=== PATIENT | male | born 1935 | race Caucasian/White ===

== ENCOUNTER → 2021-01-29 10:23 | Outpatient (BNVA) | payer MEDICARE, SELFPAY | PROVIDERS: Family Provider Family Medicine; PCP Internal Medicine; Visit Provider Nurse Practitioner | DX: R41.3 Other amnesia (principal) | CPT/HCPCS: 99204 ==

== ENCOUNTER 2021-03-21 15:02 | Outpatient (CLI) | payer MEDICARE, SELFPAY ==
--- NOTE | 2021-03-21 15:28 | CTR_ITS ---
PROCEDURE INFORMATION: Exam: CT Head Without Contrast Exam date and time: 03/21/2021 3:28 PM Age: 85 years old Clinical indication: Condition or disease; Other: Anesthesia of skin; Altered mental status/memory loss; Prior surgery; Surgery type: RT ear and eye; Additional info: R20.0 - anesthesia of skin TECHNIQUE: Imaging protocol: Computed tomography of the head without contrast. Total images: 123 Radiation optimization: All CT scans at this facility use at least one of these dose optimization techniques: automated exposure control; mA and/or kV adjustment per patient size (includes targeted exams where dose is matched to clinical indication); or iterative reconstruction. COMPARISON: No relevant prior studies available. RADIATION DOSE METRICS: Total DLP (mGy-cm): 992.04 FINDINGS: Brain: No evidence of acute intracranial pathologic process, hemorrhage, or trauma. No hyperdense MCA or insular ribbon sign. No mass effect. No midline shift. Old posterior left parietal and left occipital focal infarctions with associated atrophy, encephalomalacia, gliosis, and early porencephaly. Old bilateral basal ganglia lacunar infarctions. Cerebral arteriosclerosis. Cerebral and cerebellar atrophy with ventricular dilatation greater than that anticipated for patient's chronological age. Cerebral ventricles: No ventriculomegaly. Paranasal sinuses: Visualized sinuses are unremarkable. No fluid levels. Mastoid air cells: Evidence of previous right mastoidectomy. Orbital cavity: Right orbital globe hyperdense aqueous humor. Left orbital structures intact. Bones/joints: Unremarkable. No acute fracture. Soft tissues: Unremarkable. CT/CT head wo con* [id number] IMPRESSION: No evidence of acute intracranial pathologic process, hemorrhage, or trauma. Radiation Dose CTDIVOL = (mGy): DLP = 992.04 (mGy-cm)
== END 2021-03-21 15:03 | disposition home or self-care (01) ==
LOC: RADWPI 15:06
PROVIDERS: PCP Internal Medicine; Visit Provider Nurse Practitioner
DX: R20.0 Anesthesia of skin (principal); R41.82 Altered mental status, unspecified
CPT/HCPCS: 70450

== ENCOUNTER 2022-10-28 18:24 | Emergency (ER) | payer MEDICARE, SELFPAY ==
[2022-10-28 18:05] VITALS: BP 157/91; PULSE 83; RESP 29; TEMP 37.3; O2SAT 92
--- NOTE | 2022-10-28 18:07 | W.ED.WEAKNES ---
HPI - Weakness General: Chief complaint: Weakness Stated complaint: WEAKNESS Limitations: altered mental status History of Present Illness: Mr. Villanueva is an 87-year-old gentleman with history of dementia, diabetes, thyroid disorder, hypertension, hyperlipidemia presenting to the emergency department for presyncopal type event. The patient himself is alone in the room and provides limited history, unclear baseline however there is reported dementia. Per EMS report he had generalized weakness that started today and he had an episode where his eyes rolled back and it was hard to orient him. Review of Systems General: Reports: ROS unobtainable due to mental status PFSH ED PFSH: Medical History (Updated 11/05/22 @ 00:00 by AUSTYN Marie) Anxiety Cataract Depression Diabetes Enlarged prostate Hyperlipidemia Hypertension Hypothyroidism Surgical History (Updated 10/28/22 @ 18:41 by Collins Gan MD) History of hernia repair Family History Father Diabetes Brother Diabetes Social History Smoking and tobacco status: never smoked Physical Exam Const: COMMON NORMALS: alert GENERAL APPEARANCE: cooperative and well developed HENMT: COMMON NORMALS: normocephalic and atraumatic HEAD & SCALP: normocephalic and atraumatic THROAT: posterior oropharynx normal Eye: COMMON NORMALS: conjunctivae normal CONJUNCTIVA: Yes conjunctivae normal SCLERA: sclerae normal Neck/C-Spine: COMMON NORMALS: supple GENERAL: Yes trachea midline Resp: COMMON NORMALS: clear to auscultation bilaterally EFFORT & INSPECTION: Yes able to speak in complete sentences AUSCULTATION: clear to auscultation bilaterally Cardio: COMMON NORMALS: regular rate and regular rhythm RATE: regular rate RHYTHM: regular rhythm GI: COMMON NORMALS: Soft to palpation PALPATION: Yes Soft to palpation and No Tenderness to palpation present (GI) Extremity: GENERAL: Yes normal exam except as noted and No edema Neuro: COMMON NORMALS: CN's II-XII intact bilaterally, moves all extremities, no focal motor deficits and no sensory deficits noted SENSORIUM/ORIENTATION: Yes alert and Yes Orientation impaired Psych: COMMON NORMALS: mental status grossly normal MEMORY/COGNITION: Yes memory grossly impaired Course Vital Signs: Vital signs: Vital Signs Temperature 99.1 F 10/28/22 18:05 Pulse Rate 83 03/01/23 23:04 Respiratory Rate 16 10/28/22 21:16 Blood Pressure 152/86 10/28/22 23:04 Pulse Oximetry 92 10/28/22 23:04 Oxygen Delivery Me thod 10/28/22 18:05 MDM - Weakness Medical Decision Making 87-year-old gentleman presenting with mental status change. He does have underlying dementia and exam is nonfocal. Twelve-lead EKG shows sinus rhythm with first-degree AV block and right bundle branch block. No STEMI. Labs with likely hemoconcentration and mild dehydration with elevated creatinine. Negative range 2-hour delta troponin. Chest x-ray with no lobar consolidation or pneumothorax. Knee x-ray negative for fracture. CT head negative for acute pathology. Patient treated with analgesia and IV fluids and feels improved. Most likely etiology of symptoms is dehydration with previous ED. I discussed disposition options. Patient and family are comfortable with management at home and strict return precautions. The results of ED evaluation were discussed with the patient including prescriptions and/or symptomatic cares (if applicable) including appropriate and responsible use, followup plan, and return precautions. The patient verbalized understanding and felt safe for discharge. Medical Records I reviewed the patient's medical records. Lab Data I reviewed the patient's lab results. 10/28/22 18:40 10/28/22 18:40 Radiology Impressions Chest X-Ray 10/28/22 18:16 IMPRESSION: Decreased lung volumes otherwise negative chest. Head CT 10/28/22 18:16 IMPRESSION: 1. No acute intracranial abnormalities. 2. Additional chronic findings as above. Knee X-Ray 10/28/22 20:12 IMPRESSION: Moderate degenerative changes medial knee compartment. No acute abnormalities. Laboratory Results WBC 11.9 10^3/uL (4.0-10.0) H 10/28/22 18:40 RBC 6.04 10^6/uL (4.1-5.3) H 10/28/22 18:40 Hgb 18.6 g/dL (11.7-16.6) H 10/28/22 18:40 Hct 55.3 % (42.0-52.0) H 10/28/22 18:40 MCV 91.6 fl (80-94) 10/28/22 18:40 MCH 30.8 pg (28.0-34.0) 10/28/22 18:40 MCHC 33.6 g/dL (30.0-36.0) 10/28/22 18:40 RDW 13.1 % (12.1-15.1) 10/28/22 18:40 Plt Count 217 10^3/cmm (130-400) 10/28/22 18:40 MPV 9.8 fL (7.4-10.4) 10/28/22 18:40 Neut % (Auto) 80.1 % 10/28/22 18:40 Lymph % (Auto) 10.8 % 10/28/22 18:40 [place] % (Auto) 7.3 % 10/28/22 18:40 Eos % (Auto) 0.1 % 10/28/22 18:40 Baso % (Auto) 0.9 % 10/28/22 18:40 Neut # (Auto) 9.57 10^3/uL (1.8-7.7) H 10/28/22 18:40 Lymph # (Auto) 1.3 10^3/uL (0.8-4.8) 10/28/22 18:40 [place] # (Auto) 0.9 10^3/uL (0.2-0.9) 10/28/22 18:40 Eos # (Auto) 0.0 10^3/uL (0.0-0.8) 10/28/22 18:40 Baso # (Auto) 0.1 10^3/uL (0.0-0.1) 10/28/22 18:40 Nucleated RBC % (auto) 0 % 10/28/22 18:40 Nucleated RBCs # 0.0 /100WBC 10/28/22 18:40 Sodium 135 mmol/L (136-145) L 10/28/22 18:40 Potassium 5.1 mmol/L (3.5-5.1) 10/28/22 18:40 Chloride 93 mmol/L (98-107) L 10/28/22 18:40 Carbon Dioxide 22 mmol/L (22-29) 10/28/22 18:40 Anion Gap 25.1 (5-19) H 10/28/22 18:40 BUN 22 mg/dL (8-23) 10/28/22 18:40 Creatinine 1.4 mg/dL (0.7-1.2) H 10/28/22 18:40 GFR Calculation Not Reportable 10/28/22 18:40 Glucose 257 mg/dL (65-115) H 10/28/22 18:40 Calculated Osmolality 292 mOsm/kg (285-295) 10/28/22 18:40 Calcium 10.0 mg/dL (8.5-10.5) 10/28/22 18:40 Total Bilirubin 0.7 mg/dL (0.15-1.2) 10/28/22 18:40 AST 16 U/L (0-40) 10/28/22 18:40 ALT 11 U/L (0-41) 10/28/22 18:40 Alkaline Phosphatase 89 U/L (40-130) 10/28/22 18:40 Troponin T Baseline 37 ng/L (0-15) H 10/28/22 18:40 Troponin T 120 Minute 34.60 ng/L (0-15) H 10/28/22 20:52 Delta Troponin T -2.40 ABS# (0-10) L 10/28/22 20:52 C-Reactive Protein 25.0 mg/L (0.0-4.9) H 10/28/22 18:40 Total Protein 7.7 g/dL (6.6-8.7) 10/28/22 18:40 Albumin 4.8 g/dL (3.5-5.2) 10/28/22 18:40 Globulin 2.9 g/dL (1.3-4.6) 10/28/22 18:40 Procalcitonin 0.13 ng/mL (0-0.5) 10/28/22 18:40 TSH 3.61 uIU/mL (0.27-4.20) 10/28/22 18:40 Urine Color Yellow (Yellow) 10/28/22 19:41 Urine Appearance Clear (CLEAR) 10/28/22 19:41 Urine pH 5 (5-7) 10/28/22 19:41 Ur Specific [place] 1.015 (1.005-1.030) 10/28/22 19:41 Urine Protein Neg (Negative) 10/28/22 19:41 Urine Glucose (UA) 4+ (Normal) H 10/28/22 19:41 Urine Ketones 1+ (Negative) H 10/28/22 19:41 Urine Blood Neg (Negative) 10/28/22 19:41 Urine Nitrate Negative (Negative) 10/28/22 19:41 Urine Bilirubin Neg (Negative) 10/28/22 19:41 Urine Urobilinogen Norm mg/dL (Negative) 10/28/22 19:41 Ur Leukocyte Esterase Negative (Negative) 10/28/22 19:41 Discharge Plan Discharge Patient Disposition: Home Clinical Impression: Pre-syncope, Dehydration, Elevated serum creatinine, Orthostatic hypotension Condition: Stable Prescriptions: No Action levothyroxine [Euthyrox] 50 mcg tablet 50 mcg PO DAILY sertraline 100 mg tablet 100 mg PO DAILY metoprolol tartrate 25 mg tablet 25 mg PO DAILY tamsulosin 0.4 mg capsule 0.4 mg PO DAILY lisinopril 10 mg tablet 10 mg PO DAILY Trulicity 1.5 mg/0.5 mL pen injector SUBCUT .once a week buspirone 15 mg tablet 15 mg PO BID metformin 500 mg tablet 500 mg PO BID hydroxyzine HCl 25 mg tablet 25 mg PO TID PRN simvastatin 40 mg tablet 40 mg PO DAILY donepezil 5 mg tablet 5 mg PO DAILY loratadine [Claritin] 10 mg tablet 10 mg PO DAILY Discharge Orders: Discharge ED (Routine); Ordered 10/28/22 Ordered By: Collins Gan Referrals: Nancy Ayala, [Referring] - Discharge Diet: Usual diet Discharge Activity: Increase activity as tolerated Patient Instructions: Dehydration (ED), Near Syncope (ED) Activity Restrictions/Additional Instructions: Thank you for visiting the emergency department. You were seen and evaluated for episode of near syncope. The exact cause of your symptoms is unclear though likely related to dehydration. Please ensure that you are staying hydrated. Please follow-up with your primary care provider. Return to the emergency department for uncontrolled symptoms or anything else that you are concerned about and feel needs emergency department evaluation. Coding Level of Care Code ED Design Director for Jack Cullen
--- NOTE | 2022-10-28 18:16 | XRR_ITS ---
PROCEDURE INFORMATION: Exam: XR Chest Exam date and time: 10/28/2022 6:51 PM Age: 87 years old Clinical indication: Shortness of breath; Additional info: Near syncope, SOB, weakness TECHNIQUE: Imaging protocol: Radiologic exam of the chest. Views: 1 view. COMPARISON: No relevant prior studies available. FINDINGS: Lungs: Lung volumes are somewhat decreased which may be due to body habitus. No infiltrates. Pleural spaces: Unremarkable. No pleural effusion. No pneumothorax. Heart/Mediastinum: Unremarkable. No cardiomegaly. Bones/joints: Unremarkable. XR/XR chest 1V portable [id number] IMPRESSION: Decreased lung volumes otherwise negative chest.
--- NOTE | 2022-10-28 18:16 | CTR_ITS ---
PROCEDURE INFORMATION: Exam: CT Head Without Contrast Exam date and time: 10/28/2022 8:27 PM Age: 87 years old Clinical indication: Altered mental status/memory loss and dizziness and syncope and collapse; Prior surgery; Surgery date: 6+ months; Surgery type: RT eye; Additional info: Near syncope TECHNIQUE: Imaging protocol: Computed tomography of the head without contrast. Radiation optimization: All CT scans at this facility use at least one of these dose optimization techniques: automated exposure control; mA and/or kV adjustment per patient size (includes targeted exams where dose is matched to clinical indication); or iterative reconstruction. REPORTING DATA: Count of CT and Cardiac NM exams in prior 12 months: This patient has received 0 known CTs and 0 known cardiac nuclear medicine studies in the 12 months prior to the current study. COMPARISON: CT head wo con* [id number] 03/21/2021 3:58 PM RADIATION DOSE METRICS: Total DLP (mGy-cm): 1235.8 FINDINGS: Brain: Evidence of old infarcts with associated encephalomalacia left occipital lobe and left posterior parietal lobe and unchanged. Old lacunar infarcts left basal ganglia and right thalamus. Diffuse chronic white matter microvascular changes throughout the periventricular white matter, stable. 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 No evidence of acute infarct at this time. No evidence of intracranial hemorrhage. Age-related cerebral volume loss with associated prominence of cortical sulci, stable. Cerebral ventricles: Mild ventricular dilatation, unchanged likely secondary to age-related cerebral volume loss. Paranasal sinuses: Visualized sinuses are unremarkable. No fluid levels. Mastoid air cells: Prior right mastoidectomy. Partial opacification left mastoid sinus mildly progressed from previous exam. Orbital cavities: There is an ocular implant right globe, unchanged. Bones/joints: Unremarkable. No acute fracture. Soft tissues: Unremarkable. CT/CT head wo con* [id number] IMPRESSION: 1. No acute intracranial abnormalities. 2. Additional chronic findings as above.
--- NOTE | 2022-10-28 18:25 | ECG_ITS ---
[facility] Test Date: 2022-10-28 Pat Name: Darrian Villanueva Department: Room: Gender: Male Tobacco Grader: : 1935 Requested By: Collins Gan Order Number: [id number] Juan Diego MD: Abdias Pires M.D. Measurements Intervals [place] Rate: 85 P: 41 OK: 246 QRS: -79 QRSD: 134 T: 73 QT: 376 QTc: 449 Interpretive Statements SINUS RHYTHM WITH FIRST DEGREE AV BLOCK WITH FREQUENT SUPRAVENTRICULAR PREMATURE COMPLEXES RIGHT BUNDLE BRANCH BLOCK [120+ ms QRS DURATION, UPRIGHT V1, 40+ ms S IN I/aVL/V4/V5/V6] LEFT ANTERIOR FASCICULAR BLOCK [QRS AXIS <= -45, QR IN I, RS IN II] LEFT VENTRICULAR HYPERTROPHY AND ST-T CHANGE [VOLTAGE CRITERIA PLUS ST/T ABNORMALITY] POSSIBLE ANTERIOR MYOCARDIAL INFARCTION , OF INDETERMINATE AGE [30 ms Q WAVE IN V3/V4, OR R < 0.2 mV IN V4] No previous ECG available for comparison Electronically Signed On 10-29-2022 18:06:47 BUDGET CONSULTANT by Abdias Pires M.D. [id number]
[2022-10-28 18:49] LABS: Basophils # 0.1 10^3/uL (0.0-0.1); Basophils % 0.9 %; Eosinophils % 0.1 %; Hematocrit 55.3 % (42.0-52.0); Hemoglobin 18.6 g/dL (11.7-16.6); Lymphocytes # 1.3 10^3/uL (0.8-4.8); Lymphocytes % 10.8 %; Mean Corpuscular HGB Conc 33.6 g/dL (30.0-36.0); Mean Corpuscular Hemoglobin 30.8 pg (28.0-34.0); Mean Corpuscular Volume 91.6 fl (80-94); Mean Platelet Volume 9.8 fL (7.4-10.4); Monocytes # 0.9 10^3/uL (0.2-0.9); Monocytes % 7.3 %; Neutrophils # 9.57 10^3/uL (1.8-7.7); Neutrophils % 80.1 %; Nucleated Red Blood Cells % 0 %; Platelet Count 217 10^3/cmm (130-400); Red Blood Count 6.04 10^6/uL (4.1-5.3); Red Cell Distribution Width 13.1 % (12.1-15.1); White Blood Count 11.9 10^3/uL (4.0-10.0)
[2022-10-28 18:57] VITALS: BP 148/63; BP 168/72; BP 88/60
[2022-10-28 19:12] LABS: Troponin(5th) Baseline 37 ng/L (0-15)
[2022-10-28 19:20] LABS: Procalcitonin 0.13 ng/mL (0-0.5); Thyroid Stimulating Hormone 3.61 uIU/mL (0.27-4.20)
[2022-10-28 19:39] LABS: Alanine Aminotransferase 11 U/L (0-41); Albumin Level 4.8 g/dL (3.5-5.2); Alkaline Phosphatase 89 U/L (40-130); Anion Gap 25.1 (5-19); Aspartate Amino Transferase 16 U/L (0-40); Blood Urea Nitrogen 22 mg/dL (8-23); Carbon Dioxide 22 mmol/L (22-29); Chloride 93 mmol/L (98-107); Globulin 2.9 g/dL (1.3-4.6); Glucose 257 mg/dL (65-115); Osmolality Calculated 292 mOsm/kg (285-295); Potassium 5.1 mmol/L (3.5-5.1); Sodium 135 mmol/L (136-145); Total Bilirubin 0.7 mg/dL (0.15-1.2); Total Protein 7.7 g/dL (6.6-8.7)
[2022-10-28 19:46] VITALS: BP 164/64; PULSE 74; RESP 24; O2SAT 93
[2022-10-28] MEDS: sodium chloride 0.9% 1,000 ML 999 ML IV (19:50)
[2022-10-28 19:58] LABS: Charge for UA Resulting for Rev
[2022-10-28 20:05] LABS: Bilirubin Urine Neg (Negative); Blood Urine Neg (Negative); Glucose Urine UA 4+ (Normal); Ketones Urine 1+ (Negative); Leukocyte Esterase Urine Negative (Negative); Nitrate Urine Negative (Negative); Protein Urine Neg (Negative); Specific Gravity, Urine 1.015 (1.005-1.030); Urine Appearance Clear (CLEAR); Urine Color Yellow (Yellow); Urobilinogen Urine Norm (Negative); pH Urine 5 (5-7)
[2022-10-28 20:06] LABS: Add Urine Microscopic? NO
--- NOTE | 2022-10-28 20:12 | XRR_ITS ---
PROCEDURE INFORMATION: Exam: XR Left Knee Exam date and time: 10/28/2022 8:36 PM Age: 87 years old Clinical indication: Pain; Knee; Left; Additional info: Pain, twisted TECHNIQUE: Imaging protocol: Radiologic exam of the left knee. Views: 3 views. COMPARISON: No relevant prior studies available. FINDINGS: Bones/joints: There are moderate degenerative changes involving the medial knee compartment with some joint space narrowing, subchondral sclerosis and marginal spurring. Remainder of the joint surfaces are preserved. No fracture or malalignment. Soft tissue: No significant joint effusion. Diffuse vascular calcifications within the soft tissues. XR/XR knee LT 3V* [id number] IMPRESSION: Moderate degenerative changes medial knee compartment. No acute abnormalities.
[2022-10-28] MEDS: ketorolac 30 mg/mL INJ 15 MG IVP (21:03)
[2022-10-28 21:16] VITALS: BP 174/72; PULSE 77; RESP 16; O2SAT 93
--- NOTE | 2022-10-28 21:36 | ECG_ITS ---
[facility] Test Date: 2022-10-28 Pat Name: Darrian Villanueva Department: Room: Gender: Male Director Of Religious Life: : 1935 Requested By: Collins Gan Order Number: [id number] Juan Diego MD: Abdias Pires M.D. Measurements Intervals [place] Rate: 73 P: 36 [place]: 249 QRS: -81 QRSD: 146 T: 56 QT: 408 QTc: 451 Interpretive Statements SINUS RHYTHM WITH FIRST DEGREE AV BLOCK WITH FREQUENT SUPRAVENTRICULAR PREMATURE COMPLEXES IN A BIGEMINAL PATTERN RIGHT BUNDLE BRANCH BLOCK [120+ ms QRS DURATION, UPRIGHT V1, 40+ ms S IN I/aVL/V4/V5/V6] LEFT ANTERIOR FASCICULAR BLOCK [QRS AXIS <= -45, QR IN I, RS IN II] POSSIBLE ANTEROSEPTAL MYOCARDIAL INFARCTION , OF INDETERMINATE AGE [30 ms Q WAVE IN V1-V4] Compared to ECG 10/28/2022 18:25:31 Left ventricular hypertrophy no longer present ST (T wave) deviation no longer present Myocardial infarct finding still present Electronically Signed On 10-29-2022 18:13:12 GEAR HOBBER by Abdias Pires M.D. [id number]
[2022-10-28 22:00] VITALS: BP 149/61; PULSE 74; O2SAT 91
[2022-10-28 23:04] VITALS: BP 152/86; PULSE 83; O2SAT 92
== END 2022-10-28 23:06 | disposition home or self-care (01) ==
PROVIDERS: Emergency Provider Emergency Medicine; PCP Family Medicine
DX: I95.1 Orthostatic hypotension (principal); R74.8 Abnormal levels of other serum enzymes; Z79.85 Long-term (current) use of injectable non-insulin antidiabetic drugs; Z79.84 Long term (current) use of oral hypoglycemic drugs; E11.9 Type 2 diabetes mellitus without complications; E78.5 Hyperlipidemia, unspecified; I10 Essential (primary) hypertension
CPT/HCPCS: 36415; 70450; 71045; 73562; 80053; 81003; 84145; 84443; 84484; 85025; 86140; 93005; 96361; 96374; 99285; J1885; J7030

== ENCOUNTER → 2024-04-18 10:44 | Outpatient (BNVA) | payer MEDICARE, SELFPAY | PROVIDERS: PCP Family Medicine; Referring Provider Family Medicine; Visit Provider Psychiatry & Neurology Neurology | DX: E11.9 Type 2 diabetes mellitus without complications (principal); F03.90 Unspecified dementia, unspecified severity, without behavioral disturbance, psychotic disturbance, mood disturbance, and anxiety; T67.01XA Heatstroke and sunstroke, initial encounter; R26.89 Other abnormalities of gait and mobility; G45.9 Transient cerebral ischemic attack, unspecified; I49.9 Cardiac arrhythmia, unspecified; I10 Essential (primary) hypertension; R41.3 Other amnesia; R29.818 Other symptoms and signs involving the nervous system; X58.XXXA Exposure to other specified factors, initial encounter | CPT/HCPCS: 99203; 99204 ==

== ENCOUNTER → 2024-04-26 13:30 | Outpatient (BNVA) | payer MEDICARE, SELFPAY | PROVIDERS: PCP Family Medicine; Visit Provider Internal Medicine | DX: R07.9 Chest pain, unspecified (principal); R55 Syncope and collapse; I45.2 Bifascicular block; I51.7 Cardiomegaly; R94.31 Abnormal electrocardiogram [ECG] [EKG]; I49.9 Cardiac arrhythmia, unspecified; E11.9 Type 2 diabetes mellitus without complications; I10 Essential (primary) hypertension; E78.5 Hyperlipidemia, unspecified | CPT/HCPCS: 93005; 99204 ==

== ENCOUNTER 2024-05-22 12:21 | Outpatient (CLI) | payer MEDICARE, SELFPAY ==
--- NOTE | 2024-05-22 12:30 | USCV_ITS ---
Darrian Villanueva Age: 89 Gender: M : 1935 Exam Date: 05/22/2024 12:35 Ordering Phys: Stefano Cruz MD Technologist: Exam [place] [facility] [place]: syncope cva BP: 125 / 76 HR: 78 Rhythm: Sinus Technical Quality: Adequate MEASUREMENTS (Male / Female) Normal Values 2D ECHO LV Diastolic Diameter PLAX 4.5 cm 4.2 - 5.9 / 3.9 - 5.3 cm IVS Diastolic Thickness 0.8 cm 0.6 - 1.0 / 0.6 - 0.9 cm IVS Systolic Thickness 1.3 cm LVPW Diastolic Thickness 1.2 cm 0.6 - 1.0 / 0.6 - 0.9 cm LVPW Systolic Thickness 2.0 cm LVOT Diameter 2.0 cm LV Ejection Fraction 2D Teich 54.9 % LV Ejection Fraction MOD 4C 74.8 % LV Ejection Fraction MOD 2C 70.1 % LV Ejection Fraction 2C AL 71.6 % LA Diameter 3.2 cm RA Systolic Volume 4C AL 42.3 ml RA Systolic Volume 4C MOD 40.5 ml LA Sys Volume AL 43.4 cm cubed LA Sys Volume Index AL 23.8 cm cubed/m squared Aorta at Sinotubular Diameter 3.0 cm M-MODE LA Ao Ratio MM 1.3 AV Cusp Separation MM 2.0 cm DOPPLER AV Peak Velocity 210.0 cm/s LVOT Peak Velocity 98.0 cm/s AV Area Cont Eq vti 1.8 cm squared AV Area Cont Eq pk 1.5 cm squared MV Area PHT 3.3 cm squared Mitral E to A Ratio 1.3 TV Peak Velocity 254.5 cm/s TR Peak Velocity 385.0 cm/s TR Peak Gradient 59.3 mmHg TV Peak E Velocity 159.0 cm/s Right Atrial Pressure 3.0 mmHg Pulmonary Artery Systolic Pressu 62.3 mmHg PV Peak Velocity 111.0 cm/s FINDINGS Left Ventricle Left ventricle is normal size. LV systolic function is normal with EF 55 to 60%. No regional wall motion abnormalities are seen Right Ventricle Normal in size and function Right Atrium Normal in size Left Atrium Normal in size Mitral Valve Mitral valve is thickened. Mild to moderate mitral regurgitation. Aortic Valve Aortic valve is thickened and calcified. Mild aortic regurgitation. No significant stenosis seen. Tricuspid Valve Mild tricuspid regurgitation. Insufficient TR jet to calculate RVSP Pulmonic Valve Not well visualized Pericardium Normal Aorta Normal in size IVC Not well visualized CONCLUSIONS LV systolic function is normal with EF of 55 to 60%. Mild to moderate mitral regurgitation. Mild aortic regurgitation Mild tricuspid regurgitation. Abdias Pires MD (Electronically Signed) Final Date: 28 May 2024 20:23 S
--- NOTE | 2024-05-22 13:15 | USCV_ITS ---
Darrian Villanueva Age: 89 Gender: M : 1935 Exam Date: 05/22/2024 12:58 Ordering Phys: Stefano Cruz MD Technologist: Exam Location: [facility] [place] Indication: cva sycope Risk Factors: Previous Vascular Surgery: Right Brachial BP: / Left Brachial BP: / Right Left Velocity (cm/s) Spectral Plaque Velocity (cm/s) Spectral Plaque Syst/Diast Broadening Syst/Diast Broadening 105.70/0.00 Prox CCA 64.30 / 9.90 91.10/ 8.90 Mid CCA 84.40 / 0.00 87.40/ 12.60 Hetro Distal CCA 97.30 / 8.50 Hetro 120.00/17.30 Hetro Prox ICA 100.10/ 14.10 Hetro 118.00/14.20 Mid ICA 118.50/ 18.20 106.40/16.30 Distal ICA 132.50/ 18.20 244.40 ECA 102.10 1.40 ICA/CCA 1.40 Antegrade Vertebral Antegrade 37.30/ 0.00 cm/s 48.20/ 0.00 cm/s Bi Subclavian Bi 104.5 176.9 0 0 FINDINGS Comparison: none available. No significant elevation of systolic or diastolic velocities. Scattered plaque in the bifurcations. Antegrade vertebral arteries. Poor visualization of the artery lumen due tosuboptimal technique. CONCLUSIONS Bilateral ICA stenosis less than 50%. Mild carotid atherosclerosis. Dr. Ivana Chaney DO (Electronically Signed) Final Date: 22 May 2024 15:44 S
== END 2024-05-22 12:22 | disposition home or self-care (01) ==
LOC: RAD 12:21
PROVIDERS: PCP Family Medicine; Visit Provider Psychiatry & Neurology Neurology
DX: I34.0 Nonrheumatic mitral (valve) insufficiency (principal); I34.81 Nonrheumatic mitral (valve) annulus calcification; I35.2 Nonrheumatic aortic (valve) stenosis with insufficiency; I10 Essential (primary) hypertension; R26.89 Other abnormalities of gait and mobility; G45.9 Transient cerebral ischemic attack, unspecified
CPT/HCPCS: 93306; 93880

== ENCOUNTER 2024-05-25 08:26 | Outpatient (CLI) | payer MEDICARE, SELFPAY ==
--- NOTE | 2024-05-25 08:45 | MR_ITS ---
WS: [id number] MRI BRAIN WITHOUT CONTRAST HISTORY: E11.9 - Type 2 diabetes mellitus without complications COMPARISON: None available. TECHNIQUE: Diffusion imaging, multiplanar T1, T2 and FLAIR imaging obtained. Normal diffusion. No acute infarct. Severe bilateral symmetric atrophy. Advanced small vessel disease. Confluent and patchy T2 and FLAIR signal hyperintensity surrounding the ventricles. 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 Severe bilateral hippocampal atrophy. Moderate ventriculomegaly. Extra-axial spaces are prominent also due to the atrophy. No inferior displacement of cerebellar tonsils. The sella turcica and pituitary gland are unremarkabl e. Dural venous sinuses and [place] of [place] demonstrate no abnormality on this unenhanced studies. Paranasal sinuses: Clear. Mastoid air cells: LEFT mastoid air cell effusion. Calvarium and scalp: Intact. MR/MR head wo con* [id number] IMPRESSION: 1. No acute diffusion abnormality. 2. Remote infarcts RIGHT cerebellum and posterior LEFT parietal lobe. 3. Severe atrophy and small vessel disease. 4. Severe hippocampal atrophy.
== END 2024-05-25 08:27 | disposition home or self-care (01) ==
LOC: RAD 08:26
PROVIDERS: PCP Family Medicine; Visit Provider Psychiatry & Neurology Neurology
DX: I63.541 Cerebral infarction due to unspecified occlusion or stenosis of right cerebellar artery (principal); F03.90 Unspecified dementia, unspecified severity, without behavioral disturbance, psychotic disturbance, mood disturbance, and anxiety; E11.9 Type 2 diabetes mellitus without complications; G31.9 Degenerative disease of nervous system, unspecified; G31.09 Other frontotemporal neurocognitive disorder
CPT/HCPCS: 70551

== ENCOUNTER 2024-05-29 14:59 | Observation (INO) | payer MEDICARE, SELFPAY ==
[2024-05-29] VITALS (7 sets, daily range): BP systolic 135–206; BP diastolic 51–111; PULSE 61–93; RESP 16–20; TEMP 36.6–36.7; O2SAT 93–98
--- NOTE | 2024-05-29 15:31 | XR_ITS ---
WS: [id number] Exam: XR chest 1V portable [id number] Date/Time of Exam: 05/29/2024 3:31 PM Reason For Exam: weakness Comparison 10/28/2022. Lungs are fully expanded and clear. Normal cardiomediastinal silhouette. No pleural effusions. 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 XR/XR chest 1V portable [id number] IMPRESSION: 1. No acute cardiopulmonary finding.
--- NOTE | 2024-05-29 15:42 | CTR_ITS ---
PROCEDURE INFORMATION: Exam: CT Head Without Contrast Exam date and time: 05/29/2024 4:16 PM Age: 89 years old Clinical indication: Altered mental status/memory loss; Additional info: AMS TECHNIQUE: Imaging protocol: Computed tomography of the head without contrast. Radiation optimization: All CT scans at this facility use at least one of these dose optimization techniques: automated exposure control; mA and/or kV adjustment per patient size (includes targeted exams where dose is matched to clinical indication); or iterative reconstruction. COMPARISON: MR head wo con* [id number] 05/25/2024 8:47 AM RADIATION DOSE METRICS: Total DLP (mGy-cm): 1164 FINDINGS: Brain: No intracranial hemorrhage. There is global parenchymal volume loss. Periventricular white matter hypoattenuation is nonspecific but most likely due to small vessel disease. No evidence of acute territorial infarct or cerebral edema. No mass effect or midline shift. Left parietal and occipital encephalomalacia. Remote right thalamic lacunar infarct. Moderate bilateral periventricular and subcortical white matter hypodensities are present compatible with small-vessel ischemic disease. Cerebral ventricles: Prominent ventricles likely secondary to volume loss. Paranasal sinuses: Visualized sinuses are unremarkable. No fluid levels. Mastoid air cells: Previous right mastoidectomy. Left mastoid fluid. Orbital cavities: Right globe prosthesis. Bones: Unremarkable. No acute fracture. Soft tissues: Unremarkable. CT/CT head wo con* [id number] IMPRESSION: No acute intracranial findings.
--- NOTE | 2024-05-29 15:46 | W.ED.RECABL ---
HPI - Recheck/Abnormal Lab/Rx General: Chief Complaint: Recheck/Abnormal Lab/Rx Stated Complaint: abn labs(sent by raúl) Time Seen by Provider: 05/29/24 15:32 Source: family Limitations: altered mental status History of Present Illness: 89-year-old male is here with he states that he has been having increasing confusion states that over the last few weeks he has been quite confused she thinks he has dementia. Patient here is able to tell me his name he does not know the year or where he is at no known injuries no focal deficits. Related Data Home Medications Medication Instructions Recorded Confirmed dulaglutide 1.5 mg/0.5 mL mg SUBCUT .once a week 01/29/21 04/26/24 subcutaneous pen injector (Trulicity) metformin 500 mg tablet 500 mg PO BID 01/29/21 04/26/24 simvastatin 10 mg tablet mg PO 04/18/24 04/26/24 diphenhydramine 25 1 tab PO Q6H PRN 04/26/24 04/26/24 mg-acetaminophen 500 mg tablet (Tylenol PM Extra Strength) Previous Rx's Medication Instructions Recorded losartan 50 mg tablet 75 mg (1.5 x 50 mg) PO DAILY #135 04/26/24 tabs Allergies Allergy/AdvReac Type Severity Reaction Status Date / Time No Known Allergies Allergy Verified 05/29/24 15:14 Review of Systems General: Reports: ROS unobtainable due to mental status [facility] ED PFSH: Medical History Hyperlipidemia Hypertension Diabetes Hypothyroidism Enlarged prostate Cataract Anxiety Depression Surgical History History of hernia repair Family History Father Diabetes Brother Diabetes Social History Smoking and tobacco/nicotine status: never used tobacco/nicotine Physical Exam Const: COMMON NORMALS: negative for patient oriented x3 HENMT: COMMON NORMALS: normocephalic and atraumatic HEAD & SCALP: normocephalic and atraumatic Eye: COMMON NORMALS: Equal, round and reactive pupils present and EOMs intact bilaterally PUPIL: Yes Equal, round and reactive pupils present Neck/C-Spine: COMMON NORMALS: full ROM and supple Chest: COMMONS NORMALS: normal inspection of the chest and normal palpation of entire chest wall Resp: COMMON NORMALS: normal respiratory effort, No retractions, No use of accessory muscles and clear to auscultation bilaterally AUSCULTATION: clear to auscultation bilaterally Cardio: COMMON NORMALS: regular rate, regular rhythm and No murmurs present (Cardio) RATE: regular rate RHYTHM: regular rhythm GI: COMMON NORMALS: Normal to inspection, nondistended, normoactive bowel sounds present, Soft to palpation, non-tender and no masses PALPATION: Yes Soft to palpation Extremity: COMMON NORMALS: normal to inspection and full ROM Neuro: COMMON NORMALS: moves all extremities and no focal motor deficits; negative for patient oriented x3 Psych: COMMON NORMALS: Normal thought process present and cooperative THOUGHT PROCESS: Normal thought process present Skin: COMMON NORMALS: no rashes or lesions noted and no wounds GENERAL SKIN EXAM: no rashes or lesions noted Course Vital Signs: Vital signs: Vital Signs Temperature 98.0 F 05/29/24 15:05 Pulse Rate 71 05/29/24 16:32 Blood Pressure 160/68 05/29/24 16:32 Pulse Oximetry 93 05/29/24 16:32 Oxygen Delivery Me thod Room Air 05/29/24 16:32 MDM - Recheck/Abnormal Lab/Rx Medical Decision Making Patient presents here with generalized weakness along with altered mental status he is quite altered here per family has not been drinking or eating the last 3 days his labs does appear that he is dehydrated he has had no fevers his blood pressure has been normal spoke to hospitalist will admit for rehydration. Medical Records I reviewed the patient's medical records. Lab Data I reviewed the patient's lab results. 05/29/24 15:49 05/29/24 15:49 Radiology Impressions Chest X-Ray 05/29/24 15:31 IMPRESSION: 1. No acute cardiopulmonary finding. Head CT 05/29/24 15:42 IMPRESSION: No acute intracranial findings. Laboratory Results WBC 15.65 10^3/uL (3.29-11.43) H 05/29/24 15:49 RBC 5.18 10^6/uL (3.85-5.65) 05/29/24 15:49 Hgb 16.90 g/dL (11.27-16.99) 05/29/24 15:49 Hct 52.8 % (37-53) 05/29/24 15:49 MCV 101.9 fl (82-101) H 05/29/24 15:49 MCH 32.6 pg (27-33) 05/29/24 15:49 MCHC 32.0 g/dL (30-55) 05/29/24 15:49 RDW 14.0 % (12.1-15.1) 05/29/24 15:49 Plt Count 185 10^3/cmm (157-399) 05/29/24 15:49 MPV 10.9 fL (7.4-10.4) H 05/29/24 15:49 Neut % (Auto) 73.7 % 05/29/24 15:49 Lymph % (Auto) 18.4 % 05/29/24 15:49 [place] % (Auto) 5.6 % 05/29/24 15:49 Eos % (Auto) 0.8 % 05/29/24 15:49 Baso % (Auto) 1.0 % 05/29/24 15:49 Neut # (Auto) 11.53 10^3/uL (1.8-7.7) H 05/29/24 15:49 Lymph # (Auto) 2.9 10^3/uL (0.8-4.8) 05/29/24 15:49 [place] # (Auto) 0.9 10^3/uL (0.2-0.9) 05/29/24 15:49 Eos # (Auto) 0.1 10^3/uL (0.0-0.8) 05/29/24 15:49 Baso # (Auto) 0.2 10^3/uL (0.0-0.1) H 05/29/24 15:49 Nucleated RBC % (auto) 0 % 05/29/24 15:49 Nucleated RBCs # 0.0 /100WBC 05/29/24 15:49 Sodium 136 mmol/L (136-145) 05/29/24 15:49 Potassium 4.8 mmol/L (3.5-5.1) 05/29/24 15:49 Chloride 97 mmol/L (98-107) L 05/29/24 15:49 Carbon Dioxide 17 mmol/L (22-29) L 05/29/24 15:49 Anion Gap 26.8 (5-19) H 05/29/24 15:49 BUN 43 mg/dL (8-23) H 05/29/24 15:49 Creatinine 1.1 mg/dL (0.7-1.2) 05/29/24 15:49 GFR Calculation Not Reportable 05/29/24 15:49 Glucose 140 mg/dL (65-115) H 05/29/24 15:49 Calculated Osmolality 295 mOsm/kg (285-295) 05/29/24 15:49 Calcium 9.5 mg/dL (8.5-10.5) 05/29/24 15:49 Total Bilirubin 0.7 mg/dL (0.15-1.2) 05/29/24 15:49 AST 19 U/L (0-40) 05/29/24 15:49 ALT 12 U/L (0-41) 05/29/24 15:49 Alkaline Phosphatase 62 U/L (40-130) 05/29/24 15:49 Total Protein 7.8 g/dL (6.6-8.7) 05/29/24 15:49 Albumin 4.3 g/dL (3.5-5.2) 05/29/24 15:49 Globulin 3.5 g/dL (1.3-4.6) 05/29/24 15:49 TSH 1.26 uIU/mL (0.27-4.20) 05/29/24 15:49 Urine Color Yellow (Yellow) 05/29/24 16:40 Urine Appearance Clear (CLEAR) 05/29/24 16:40 Urine pH 5.0 (5-7) 05/29/24 16:40 Ur Specific [place] 1.030 (1.005-1.030) 05/29/24 16:40 Urine Protein Negative (Negative) 05/29/24 16:40 Urine Glucose (UA) 3+ (Normal) H 05/29/24 16:40 Urine Ketones 1+ (Negative) H 05/29/24 16:40 Urine Blood Negative (Negative) 05/29/24 16:40 Urine Nitrate Negative (Negative) 05/29/24 16:40 Urine Bilirubin Negative (Negative) 05/29/24 16:40 Urine Urobilinogen 0.2 mg/dL (Negative) 05/29/24 16:40 Ur Leukocyte Esterase Negative (Negative) 05/29/24 16:40 Amorphous Sediment Not Reportable 05/29/24 16:40 All radiology interpretation(s) finalized by discharge EKG Data EKG 1: I personally reviewed and interpreted this EKG as follows: EKG interpretation date: 05/29/24 EKG interpretation time: 16:28 Interpretation: nsr hr [address] elevation qrs 139 qtc 452 Discharge Plan Discharge Patient Disposition: Admitted As Inpatient Clinical Impression: Altered mental status, Dehydration Condition: Stable Prescriptions: No Action Trulicity 1.5 mg/0.5 mL pen injector SUBCUT .once a week metformin 500 mg tablet 500 mg PO BID simvastatin 10 mg tablet PO diphenhydramine-acetaminophen [Tylenol PM Extra Strength] 25-500 mg tablet 1 tab PO Q6H PRN losartan 50 mg tablet 75 mg PO DAILY Qty: 135 3RF Referrals: Carlos Manuel Galvez MD [Primary Care Provider] - Coding Level of Care Code 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
[2024-05-29 16:05] LABS: Basophils # 0.2 10^3/uL (0.0-0.1); Eosinophils # 0.1 10^3/uL (0.0-0.8); Eosinophils % 0.8 %; Hematocrit 52.8 % (37-53); Lymphocytes # 2.9 10^3/uL (0.8-4.8); Lymphocytes % 18.4 %; Mean Corpuscular Hemoglobin 32.6 pg (27-33); Mean Corpuscular Volume 101.9 fl (82-101); Mean Platelet Volume 10.9 fL (7.4-10.4); Monocytes # 0.9 10^3/uL (0.2-0.9); Monocytes % 5.6 %; Neutrophils # 11.53 10^3/uL (1.8-7.7); Neutrophils % 73.7 %; Nucleated Red Blood Cells % 0 %; Platelet Count 185 10^3/cmm (157-399); Red Blood Count 5.18 10^6/uL (3.85-5.65); White Blood Count 15.65 10^3/uL (3.29-11.43)
--- NOTE | 2024-05-29 16:28 | ECG_ITS ---
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 Measurements Intervals [place] Rate: 60 P: 105 NM: 268 QRS: -75 QRSD: 139 T: 79 QT: 451 QTc: 453 Interpretive Statements SINUS RHYTHM WITH FIRST DEGREE AV BLOCK WITH FREQUENT VENTRICULAR PREMATURE COMPLEXES LEFT AXIS DEVIATION [QRS AXIS < -30] RIGHT BUNDLE BRANCH BLOCK [120+ ms QRS DURATION, UPRIGHT V1, 40+ ms S IN I/aVL/V4/V5/V6] LEFT VENTRICULAR HYPERTROPHY AND ST-T CHANGE [VOLTAGE CRITERIA PLUS ST/T ABNORMALITY] Compared to ECG 04/26/2024 13:40:23 First degree AV block now present Left-axis deviation now present ST (T wave) deviation still present Electronically Signed On 05-29-2024 18:41:25 CDT by Abdias Pires M.D. [id number]
[2024-05-29 16:34] LABS: Alanine Aminotransferase 12 U/L (0-41); Albumin Level 4.3 g/dL (3.5-5.2); Alkaline Phosphatase 62 U/L (40-130); Aspartate Amino Transferase 19 U/L (0-40); Blood Urea Nitrogen 43 mg/dL (8-23); Calcium 9.5 mg/dL (8.5-10.5); Carbon Dioxide 17 mmol/L (22-29); Chloride 97 mmol/L (98-107); Globulin 3.5 g/dL (1.3-4.6); Glucose 140 mg/dL (65-115); Osmolality Calculated 295 mOsm/kg (285-295); Sodium 136 mmol/L (136-145); Thyroid Stimulating Hormone 1.26 uIU/mL (0.27-4.20); Total Bilirubin 0.7 mg/dL (0.15-1.2); Total Protein 7.8 g/dL (6.6-8.7)
[2024-05-29 16:42] LABS: Anion Gap 26.8 (5-19); Potassium 4.8 mmol/L (3.5-5.1)
[2024-05-29 17:18] LABS: Bilirubin Urine Negative (Negative); Blood Urine Negative (Negative); Glucose Urine UA 3+ (Normal); Ketones Urine 1+ (Negative); Leukocyte Esterase Urine Negative (Negative); Nitrate Urine Negative (Negative); Protein Urine Negative (Negative); Urine Appearance Clear (CLEAR); Urine Color Yellow (Yellow); Urobilinogen Urine 0.2 mg/dL (Negative)
[2024-05-29 17:24] LABS: Add Urine Microscopic? YES; Bacteria Urine None Seen /hpf; Hyaline Casts Urine 2.05 /lpf; RBC Urine 0-2 /hpf (0-2); Squamous Epithelial Cell Urine 0-5 /hpf (0-5); WBC Urine 0-5 /hpf (0-5)
[2024-05-29] MEDS: sodium chloride 0.9% 1,000 ML 999 ML IV (17:44)
[2024-05-29 17:51] LABS: Add Urine Culture? No; Amorphous Sediment Urine 1+ /hpf; UA Slide Review UA Slide Review Perf
--- NOTE | 2024-05-29 18:08 | ECG_ITS ---
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 Measurements Intervals [place] Rate: 59 P: 63 [place]: 262 QRS: -73 QRSD: 137 T: 83 QT: 445 QTc: 441 Interpretive Statements SINUS BRADYCARDIA WITH FIRST DEGREE AV BLOCK WITH FREQUENT VENTRICULAR PREMATURE COMPLEXES INTERMITTENT 2:1 AV BLOCK RIGHT BUNDLE BRANCH BLOCK [120+ ms QRS DURATION, UPRIGHT V1, 40+ ms S IN I/aVL/V4/V5/V6] LEFT ANTERIOR FASCICULAR BLOCK [QRS AXIS <= -45, QR IN I, RS IN II] MODERATE VOLTAGE CRITERIA FOR LVH, CONSIDER NORMAL VARIANT [MEETS CRITERIA IN ONE OF: R(aVL), S(V1), R(V5), R(V5/V6)+S(V1)] Compared to ECG 05/29/2024 16:28:51 Left-axis deviation no longer present ST (T wave) deviation no longer present Electronically Signed On 05-29-2024 18:40:40 CDT by Abdias Pires M.D. [id number]
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
--- NOTE | 2024-05-29 18:17 | XRR_ITS ---
PROCEDURE INFORMATION: Exam: XR Right Hand Exam date and time: 05/29/2024 6:21 PM Age: 89 years old Clinical indication: Injury or trauma; Fall; Blunt trauma (contusions or hematomas); Hand; Right TECHNIQUE: Imaging protocol: Radiologic exam of the right hand. Views: 1 or 2 views. COMPARISON: No relevant prior studies available. 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 Soft tissues: Normal. 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
[2024-05-29] MEDS: haloperidol inj 5 mg/mL INJ 1 mL IM (18:48)
--- NOTE | 2024-05-29 19:03 | PC.NURSE ---
Shift change report received from Kelley CLEMENT. THis nurse was told report has been called to CSU nurse and pt is ready to go to the floor. This nurse will transport pt to floor now.
[2024-05-29 19:21] LABS: Erythrocyte Sedimentation Rate 5 mm/hr (0-10)
[2024-05-29 19:51] LABS: Troponin(5th) Baseline 52 ng/L (0-15)
[2024-05-29 19:54] LABS: Ammonia 21 umol/L (16-60)
[2024-05-29 19:57] LABS: D Dimer 2.33 ug/mLFEU (0-0.59)
--- NOTE | 2024-05-29 20:08 | ECG_ITS ---
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 Measurements Intervals [place] Rate: 68 P: 37 NV: 244 QRS: -78 QRSD: 129 T: 79 QT: 484 QTc: 516 Interpretive Statements SINUS RHYTHM WITH PVCs LEFT AXIS DEVIATION [QRS AXIS < -30] RIGHT BUNDLE BRANCH BLOCK [120+ ms QRS DURATION, UPRIGHT V1, 40+ ms S IN I/aVL/V4/V5/V6] ANTERIOR MYOCARDIAL INFARCTION , AGE INDETERMINATE Compared to ECG 05/29/2024 18:23:20 Left-axis deviation now present Sinus bradycardia no longer present First degree AV block no longer present Left anterior fascicular block no longer present Electronically Signed On 05-30-2024 16:29:40 CDT by Abdias Pires M.D. [id number]
[2024-05-29 20:18] LABS: Folate Level 15.1 ng/mL (4.5-32.2)
[2024-05-29 20:22] LABS: NT Pro B Type Natriuretic Pept 393 pg/mL (0-450); Procalcitonin 0.07 ng/mL (0-0.5); Vitamin B12 843 pg/mL (232-1245)
[2024-05-29 20:33] LABS: C Reactive Protein 3.4 mg/L (0.0-4.9); Chol HDL Ratio 2.96 mg/dL (1.0-5.00); Cholesterol 169 mg/dL (0-200); HDL Cholesterol 57 mg/dL (60-100); LDL Cholesterol Calculated 90 mg/dL (50-129); LDL HDL Ratio 1.58 RATIO (0.00-3.22); Triglycerides 110 mg/dL (0-150)
[2024-05-29] MEDS: pantoprazole 40 mg SDV IVP (20:43)
[2024-05-29] MEDS: sodium chloride 0.9% 1,000 ML 125 ML IV (20:43)
[2024-05-29] MEDS: enoxaparin 40 mg/0.4 mL Syringe SUBCUT (20:43)
[2024-05-29] MEDS: OLANZapine 5 mg ODT PO (20:43)
[2024-05-29 20:49] LABS: Estmated Average Glucose 163; Hemoglobin A1C 7.3 % (4.0-6.0)
[2024-05-29 21:05] LABS: Free T4 Free Thyroxine 1.63 ng/dL (0.82-1.77); T3 Free 1.9 PG/ML (2.0-4.4)
[2024-05-29 21:26] LABS: Troponin 5 2HR 55.25 ng/L (0-15); Troponin 5 2HR Delta 3.25 ABS# (0-10)
[2024-05-29 21:32] LABS: Glucose Point of Care 120 mg/dL (70-110)
[2024-05-30] VITALS (7 sets, daily range): BP systolic 167–178; BP diastolic 54–71; PULSE 54–78; RESP 17–22; TEMP 35.7–37; O2SAT 90–100
--- NOTE | 2024-05-30 00:44 | ECG_ITS ---
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 Measurements Intervals [place] Rate: 55 P: 60 NE: 255 QRS: -84 QRSD: 133 T: 68 QT: 494 QTc: 473 Interpretive Statements SINUS RHYTHM WITH PVCs LEFT AXIS DEVIATION [QRS AXIS < -30] RIGHT BUNDLE BRANCH BLOCK [120+ ms QRS DURATION, UPRIGHT V1, 40+ ms S IN I/aVL/V4/V5/V6] POSSIBLE ANTERIOR MYOCARDIAL INFARCTION , OF INDETERMINATE AGE [30 ms Q WAVE IN V3/V4, OR R < 0.2 mV IN V4] MODERATE T-WAVE ABNORMALITY, CONSIDER LATERAL ISCHEMIA [-0.1+ mV T-WAVE IN I/aVL/V5/V6] Compared to ECG 05/29/2024 21:37:44 T-wave abnormality now present Possible ischemia now present Myocardial infarct finding still present Electronically Signed On 05-30-2024 16:30:44 CDT by Abdias Pires M.D. [id number]
[2024-05-30 01:53] LABS: Basophils # 0.1 10^3/uL (0.0-0.1); Basophils % 0.8 %; Eosinophils # 0.2 10^3/uL (0.0-0.8); Eosinophils % 1.4 %; Hematocrit 47.3 % (37-53); Lymphocytes # 3.9 10^3/uL (0.8-4.8); Lymphocytes % 23.9 %; Mean Corpuscular HGB Conc 32.3 g/dL (30-55); Mean Corpuscular Hemoglobin 31.9 pg (27-33); Mean Corpuscular Volume 98.5 fl (82-101); Mean Platelet Volume 10.4 fL (7.4-10.4); Monocytes # 1.3 10^3/uL (0.2-0.9); Monocytes % 7.7 %; Neutrophils # 10.64 10^3/uL (1.8-7.7); Neutrophils % 65.6 %; Nucleated Red Blood Cells % 0 %; Platelet Count 200 10^3/cmm (157-399); Red Cell Distribution Width 13.9 % (12.1-15.1); White Blood Count 16.22 10^3/uL (3.29-11.43)
[2024-05-30 02:05] LABS: Troponin 5 6HR 53.34 ng/L (0-15); Troponin 5 6HR Delta 1.34 ng/L (0-12)
[2024-05-30 02:06] LABS: Alanine Aminotransferase 10 U/L (0-41); Alkaline Phosphatase 56 U/L (40-130); Anion Gap 26.9 (5-19); Aspartate Amino Transferase 17 U/L (0-40); Blood Urea Nitrogen 38 mg/dL (8-23); Calcium 8.8 mg/dL (8.5-10.5); Carbon Dioxide 15 mmol/L (22-29); Chloride 102 mmol/L (98-107); Globulin 2.2 g/dL (1.3-4.6); Glucose 104 mg/dL (65-115); Magnesium 1.8 mg/dL (1.7-2.3); Osmolality Calculated 297 mOsm/kg (285-295); Phosphorus 2.9 mg/dL (2.5-4.5); Potassium 4.9 mmol/L (3.5-5.1); Sodium 139 mmol/L (136-145); Total Bilirubin 0.6 mg/dL (0.15-1.2); Total Protein 6.2 g/dL (6.6-8.7)
[2024-05-30 05:25] LABS: Amphetamines Screen Urine Negative (Negative); Barbiturates Screen Urine Negative (Negative); Benzodiazepines Screen Urine Negative (Negative); Cocaine Screen Urine Negative (Negative); Opiate Screen Urine Negative (Negative); PCP Screen Urine Negative (Negative); THC Screen Urine Negative (Negative)
[2024-05-30 05:46] LABS: Covid PCR NEGATIVE (Negative); Influenza A NEGATIVE (Negative); Influenza B NEGATIVE (Negative); Respiratory Syncytial Virus Ce NEGATIVE (Negative)
[2024-05-30 06:13] LABS: Glucose Point of Care 115 mg/dL (70-110)
[2024-05-30] MEDS: sodium chloride 0.9% 1,000 ML 125 ML IV ×2 (06:16→15:19)
--- NOTE | 2024-05-30 08:02 | CT_ITS ---
WS: [id number] CT ABDOMEN AND PELVIS NONCONTRAST HISTORY: leukocytosis, n/v/ TECHNIQUE: Imaging performed through the abdomen and pelvis. Coronal and sagittal reformats are submi tted. All CT scans at [facility] use at least one of these dose optimization techniques: auto mated exposure control; mA and/or kV adjustment per patient size (includes targeted exams where dose is matched to clinical indication); or iterative reconstruction. DLP: 450.92 mGy.cm COMPARISON: None available. Lower thorax: Mild interstitial thickening at the RIGHT lung base. No dense consolidation or pneumoni a. Mild cardiomegaly. Small hiatal hernia. Liver: Normal size liver. No mass or bile duct dilatation. Gallbladder: Significant breathing motion artifact. No abnormality identified. Pancreas: Diffuse fatty replacement. Spleen: Normal. Adrenal glands: Normal. No mass. Right kidney: Diffuse mild cortical thinning. Bilobed RIGHT renal cyst 2.9 x 4.8 x 2.4 cm. No obstruc tion. Left kidney: Mild cortical thinning. No atrophy. No obstruction. Aorta: Moderate atherosclerotic plaque. Plaque extends into the celiac axis and SMA. Heavy calcificat ion in the splenic artery. No free fluid, intraperitoneal air or significant lymphadenopathy. GI tract: Stomach is distended with fluid. No enteritis or colitis. No obstruction. Study is limited by motion artifact. Mild diverticular disease. Abdominal wall: Negative. No hernia. Pelvis: Urinary bladder is well distended. There is a small bladder diverticulum extending from the R IGHT. Foci of increased attenuation in the urinary bladder. These may be gravel-like stones past from the kidney. Prostate is enlarged and heterogeneous with calcification. Osseous structures: Chronic deformity of the L5 vertebral body. 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 CT/CT abdomen pelvis wo con [id number] IMPRESSION: 1. Study is compromised by breathing motion artifact. 2. Mild interstitial thickening at the RIGHT lung base. 3. Gallbladder cannot be evaluated well due to the breathing motion artifact. 4. No renal obstruction. 5. RIGHT renal cyst. 6. Atherosclerotic changes throughout the aorta. 7. No GI tract obstruction. 8. Gravel-like calcifications in the bladder and a small RIGHT lateral bladder diverticulum. 9. Urinary bladder is overly distended. Consider partial outlet obstruction.
--- NOTE | 2024-05-30 08:02 | CT_ITS ---
WS: [id number] CT CHEST ANGIOGRAPHY WITH REFORMATS HISTORY: Elevated d dimer TECHNIQUE: Contiguous axial images are obtained through the chest during arterial injection of intrav enous contrast. Images are reconstructed to evaluate the pulmonary arteries. MIP imaging also reviewe d. All CT scans at [facility] use at least one of these dose optimization techniques: automat ed exposure control; mA and/or kV adjustment per patient size (includes targeted exams where dose is matched to clinical indication); or iterative reconstruction. CONTRAST: Omnipaque 350; 100 mL IV. DLP: Not submitted COMPARISON: None available. Very good opacification of the pulmonary arteries. No filling defects or pulmonary emboli are identif ied. Mildly dilated main pulmonary artery. No RIGHT heart strain. Atherosclerosis and ectasia thoracic aorta. Mildly enlarged heart. No pericardial or pleural effusion s. Mildly prominent lymphoid tissue at the hilar regions. No adenopathy. 4 mm subpleural nodule superior segment RIGHT lower lobe. Mild interstitial prominence in the RIGHT l ower lobe. This is asymmetric to the LEFT. No pneumonia or mass. Suprarenal abdominal aortic calcifications. RIGHT renal cyst. Fatty replacement of the pancreas. Incr ease in thoracic kyphosis. No destructive bone lesions. CT/CT angio chest PE protcl [id number] IMPRESSION: 1. No pulmonary embolism. 2. There is mild interstitial prominence in the RIGHT lower lobe. This may be early changes of pneumonitis. No pneumonia. 3. No mediastinal or hilar adenopathy. There is mild lymphoid tissue at the hi lar regions which may be reactive. 4. Mild cardiomegaly.
[2024-05-30 08:19] LABS: Ketone (Acetest) Serum Positive (Negative)
--- NOTE | 2024-05-30 09:16 | PC.CHAP ---
Pastoral Care Encounter/Spiritual Assessment Type of Contact [] Declined proof tester visit [] Patient/Family/Request visit [] Outpatient visit [] Follow-up visit [] Physician referral [] Code/Alert [x] Routine visit [] Staff referral [] Actively dying [] Patient sleeping [] Family support [] [] Out of room [] Palliative care [] [] Receiving care in room [] Pre-surgical visit [] Trauma [] Long length of stay [] ICU visit [] Other: Relational/Emotional Strength [x] Patient feels connected with others/family/visitors/staff [] Distress [] Loneliness/isolation [] Abandonment Spirituality of Patient [x] Person of Jessy [] Attends Mormonism of their Jessy [x] Believes in Prayer [] Reads Bible or Pentecostalism materials [] There are Spiritual issues to be addressed Measurement Specialist Interventions [x] Prayer [x] Active listening [] Non-anxious presence [x] Spiritual/emotional support [] Crisis/trauma care [] Spiritual counseling [] Bereavement support [] Provided bereavement packet [] Provided Bible/devotional materials [] Provided toy/stuffed animal, coloring book to patient or family member [] Provided Communion [] Anointing/Flushing [] Salvation [x] Completed spiritual assessment [] Other: Impact on Illness or Injury [] Angry [] Fearful [] Anxious [] Often cries [] Exhaustion [] Unable to work [] Unable to attend scientology [] Unable to walk/stand [] Unable to read [] Unable to drive [] Unable to eat/drink [] Unable to sleep [] Unable to be with family [] Patient intubated [] Other: Summary Time spent with patient 5 min
[2024-05-30] MEDS: iohexol 350 mg/mL 500 mL Btl (per mL) IV (09:17)
[2024-05-30] MEDS: OLANZapine 5 mg ODT PO ×2 (10:33→17:28)
--- NOTE | 2024-05-30 11:25 | PC.NURSE ---
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
--- NOTE | 2024-05-30 11:40 | P.PN_ITS ---
Subjective 2 Subjective: Patient was seen this morning, he is alert to person, not to place, not to time, sitting up in the chair nursing staff at bedside, does not follow commands, he did tolerated Zyprexa well last night, will give him another dose this morning Vitals/I&O/Wt Last Vital Signs Temp 96.3 F L 05/30/24 07:11 Pulse 54 L 05/30/24 07:11 Resp 17 05/30/24 07:11 BP 174/58 05/30/24 07:11 Pulse Ox 98 05/30/24 07:11 O2 Del Method Room Air 05/30/24 07:11 05/29/24 05/30/24 05/30/24 22:59 06:59 14:59 Intake Total 1000 / 1000 100 / 100 Output Total 350 / 350 Balance 1000 / 1000 -250 / -250 Weight last 48 hrs Weight 62.171 kg Physical Exam 2 Const: COMMON NORMALS: no acute distress ORIENTATION/CONSCIOUSNESS: Yes awake, Yes oriented to person and Yes confused; not oriented to place and not oriented to time Resp: COMMON NORMALS: normal respiratory effort, No retractions, No use of accessory muscles and clear to auscultation bilaterally AUSCULTATION: clear to auscultation bilaterally Cardio: COMMON NORMALS: regular rate, regular rhythm, S1 normal heart sound present and S2 normal heart sound present RATE: regular rate RHYTHM: r egular rhythm HEART SOUNDS: S1 normal heart sound present and S2 normal heart sound present GI: COMMON NORMALS: Normal to inspection, nondistended, normoactive bowel sounds present and non-tender Extremity: COMMON NORMALS: no pedal edema Neuro: SENSORIUM/ORIENTATION: Yes oriented to person, No oriented to place and No oriented to time Data 05/30/24 01:06 05/30/24 01:06 Micro: Microbiology 05/29/24 18:04 Blood Culture - Preliminary Blood SPECIMEN COLLECTED 05/29/24 17:55 Blood Culture - Preliminary Blood SPECIMEN COLLECTED A&P Assessment and plan (1) Altered mental status: Plan Altered mental status -Recent head MRI Normal diffusion. No acute infarct. Severe bilateral symmetric atrophy. Advanced small vessel disease. Confluent and patchy T2 and FLAIR signal hyperintensity surrounding the ventricles. 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 Severe bilateral hippocampal atrophy. Moderate ventriculomegaly. Extra-axial spaces are prominent also due to the atrophy. No inferior displacement of cerebellar tonsils. The sella turcica and pituitary gland are unremarkable. Dural venous sinuses and [place] of [place] demonstrate no abnormality on this unenhanced studies. Paranasal sinuses: Clear. Mastoid air cells: LEFT mastoid air cell effusion. Calvarium and scalp: Intact. -Recent cardiac echo CONCLUSIONS LV systolic function is normal with EF of 55 to 60%. Mild to moderate mitral regurgitation. Mild aortic regurgitation Mild tricuspid regurgitation. -Recent event monitor, multiple episodes of 2-1 AV block, ventricular tachycardia, longest measuring 3 seconds, -Carotid artery ultrasound, bilateral ICA stenosis less than 50% -No significant evidence of UTI ? Chest x-ray no focal pneumonia ? BUN is 43, creatinine 1.1 ? Head CT no acute findings ? Recently evaluated by neurology concerns for TIA ? Suspect acute on chronic worsening of patient's underlying dementia ? Plan ? Is a bit agitated in the ER will give him 0.5 mg IM Haldol ? Serial EKGs, serial troponins, telemetry monitoring, will monitor in CSU ? Will give him 1 dose of Zyprexa 5 mg at bedtime, as does report history of sundowning, will have to monitor this closely tonight ? Continue IV fluids - Leukocytosis, CT chest abdomen pelvis - CRP, Pro-Francisco, sed rate within normal limits ? Complaints of right hand pain, x-ray right hand no acute findings ?low-dose insulin sliding scale ? CODE STATUS, DNR/DNI, confirmed with at bedside multiple times ? Lovenox for DVT prophylaxis Attestations 2 Medical Necessity Statement*: Patient requires hospitalization for altered mental status Diagnoses Altered mental status R41.82
[2024-05-30] MEDS: tamsulosin 0.4 mg Capsule PO (12:02)
[2024-05-30 12:24] LABS: Glucose Point of Care 127 mg/dL (70-110)
--- NOTE | 2024-05-30 15:26 | PC.NURSE ---
Patients is notified of the room change. Patient's also confirmed that his last BM was 05/28/2024.
[2024-05-30 17:26] LABS: Glucose Point of Care 131 mg/dL (70-110)
[2024-05-30 17:26] LABS: Glucose Point of Care 123 mg/dL (70-110)
[2024-05-30] MEDS: enoxaparin 40 mg/0.4 mL Syringe SUBCUT (20:04)
[2024-05-30] MEDS: pantoprazole 40 mg SDV IVP (20:04)
[2024-05-30 20:55] LABS: Glucose Point of Care 149 mg/dL (70-110)
[2024-05-31] VITALS (54 sets, daily range): BP systolic 170–185; BP diastolic 69–88; PULSE 46–103; RESP 12–41; TEMP 36.8–37.1; O2SAT 97–100; BMI 22.8
[2024-05-31] MEDS: sodium chloride 0.9% 1,000 ML 125 ML IV (04:35)
[2024-05-31 06:42] LABS: Glucose Point of Care 91 mg/dL (70-110)
[2024-05-31] MEDS: amlodipine 10 mg Tablet PO (09:27)
[2024-05-31] MEDS: OLANZapine 5 mg ODT PO (09:27)
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
--- NOTE | 2024-05-31 11:07 | PC.SOCIAL ---
IMM Updated Updated pt's on IMM. No questions voiced. Provided pt a copy. Initialed, dated, & timed copy in chart.
--- NOTE | 2024-05-31 11:27 | PC.NURSE ---
Discharge Note Patient discharged to home via POV accompanied by spouse. Discharge instructions reviewed with patient and/or financial foundations representative. Mobile pharmacy medications and/or prescriptions provided. Belongings/home medications returned.
== END 2024-05-31 11:28 | disposition home or self-care (01) ==
LOC: ER 17:42 → CSU 22:06
PROVIDERS: Admitting Provider Family Medicine; Emergency Provider Emergency Medicine; PCP Family Medicine; Visit Provider Family Medicine
DX: R41.82 Altered mental status, unspecified (principal); F03.90 Unspecified dementia, unspecified severity, without behavioral disturbance, psychotic disturbance, mood disturbance, and anxiety; E86.0 Dehydration; E78.5 Hyperlipidemia, unspecified; E03.9 Hypothyroidism, unspecified; E11.22 Type 2 diabetes mellitus with diabetic chronic kidney disease; I12.9 Hypertensive chronic kidney disease with stage 1 through stage 4 chronic kidney disease, or unspecified chronic kidney disease; N18.9 Chronic kidney disease, unspecified; I08.3 Combined rheumatic disorders of mitral, aortic and tricuspid valves; Z66 Do not resuscitate; Z79.899 Other long term (current) drug therapy; Z88.8 Allergy status to other drugs, medicaments and biological substances
CPT/HCPCS: 0241U; 36415; 36416; 70450; 71045; 71275; 73120; 74176; 80053; 80061; 80306; 81001; 82009; 82140; 82607; 82746; 82962; 83036; 83605; 83735; 83880; 84100; 84145; 84439; 84443; 84481; 84484; 85025; 85378; 85651; 86140; 87040; 93005; 94664; 96361; 96372; 96376; 97116; 97161; 97165; 99285; A9270; G0378; J1630; J1650; J2470; J7030